=== PATIENT | female | born 1965 | race Caucasian/White ===

== ENCOUNTER → 2017-01-10 | Day surgery (SDC) | payer OTHER ==
[~2017-01-10] MED LIST: ACETAMINOPHEN; ACETAMINOPHEN PO; AMITRIPTYLINE H75 MG PO; BACTRIM DS TABL1 TAB; CARAFATE1 G PO; CIPRO PO; CYCLOBENZAPRINE5 MG PO; LEVAQUIN PO; NICOTINE TRANSDE7 MG TD; PROTONIX PO; PYRIDIUM100 MG PO; SINUS PO; VICODIN 5/500 T1 TAB; [UNRECOGNIZED DRUG - OTHER] PO
--- NOTE | ~2017-01-10 | OR ---
Unit #: [id number] #: [id number] Patient: PAMELA TRAORE [id number] [address] [place], [place] [address] [id number] O MR#: [id number] NAME: PAMELA TRAORE ROOM: Date of Procedure: 01/10/2017 Admission Date: 01/10/2017 Surgeon: Gray Douglas M.D. : 1965 Attending Physician: Gray Douglas M.D. Primary Care Physician: Sulaiman Montenegro M.D. OPERATIVE REPORT ADDITIONAL ATTENDING PHYSICIAN Ana Islas APRN PREOPERATIVE DIAGNOSIS Colorectal cancer screening in an average-risk patient. PROCEDURE PERFORMED Colonoscopy up to cecum with good prep and visualization. POSTOPERATIVE DIAGNOSES Completely normal examination up to cecum. The patient did not have any polyps, diverticula, or hemorrhoids. The quality of the prep was good. RECOMMENDATIONS Repeat colonoscopy in 10 years. SEDATION USED MAC. DESCRIPTION OF PROCEDURE Following detailed explanation of potential risks and complications of a colonoscopy, namely perforation, bleeding, and complications related to sedation, the patient was brought to GI lab and laid in the left lateral decubitus position. A digital rectal examination was performed, which was normal. Lubricated tip of the Olympus video colonoscope was inserted through the anus and advanced under direct vision. The scope was advanced and passed up to sigmoid into descending colon. No diverticula were noticed in this area. The scope tip was then navigated all the way up to cecum with visualization of the ileocecal valve and the appendiceal orifice. Preparation was excellent with good visualization and photodocumentation was obtained. Successive segments of the colonic mucosa were examined upon withdrawal and appeared unremarkable. There being no polyps, mass lesions, AVMs, or diverticula. The patient did not have any hemorrhoids at anal verge. The scope was then withdrawn. The patient returned to recovery area. She tolerated the procedure without any postprocedure complications. Dictated by... Gray Douglas M.D. Unit #: [id number] #: [id number] Patient: PAMELA TRAORE ARANZA/quita TD: 01/11/2017 02:36 JOB #: [id number] OPERATIVE REPORT X Gray Douglas MD PROCEDURE OPERATIVE NOTE
== END | disposition home or self-care (01) ==
LOC: COPS 10:25
DX: Z12.11 Encounter for screening for malignant neoplasm of colon (principal); J44.9 Chronic obstructive pulmonary disease, unspecified; F17.210 Nicotine dependence, cigarettes, uncomplicated; Z87.01 Personal history of pneumonia (recurrent); Z87.440 Personal history of urinary (tract) infections; Z79.899 Other long term (current) drug therapy; Z90.710 Acquired absence of both cervix and uterus
CPT/HCPCS: J2250

== ENCOUNTER → 2017-05-02 | Outpatient (CLI) | payer OTHER ==
--- NOTE | ~2017-05-02 | US37 ---
[facility] A Service of [facility] & [facility] / [facility] RADIOLOGY TEXT RESULTS PATIENT: PAMELA TRAORE LOCATION: [facility] : 61 UNIT #: [id number] AGE: [address]: Tanvir Godfrey MD SEX: F ORDER DR: [id number] [facility] [address]. [place], [place] [address] [id number] O MR#: [id number] Acc #: [id number] NAME: PAMELA TRAORE : 1965 SEX: F STUDY DATE/TIME: 05/02/2017 8:14 UNIT: [facility] ROOM: STUDY DESCRIPTION: US Carotid W/Doppler Bilateral Attending Physician: Tanvir Godfrey M.D. Referring Physician: Tanvir Godfrey M.D. Ordering Physician: Tanvir Godfrey M.D. Primary Care Physician: Carmen German Aprn MEDICAL IMAGING REPORT This report is preliminary unless electronic signature is present EXAM Carotid duplex scan. DATE OF EXAMINATION 05/02/2017 HISTORY Hypertension. Headaches. Numbness left lower extremity. FINDINGS The right common carotid artery has a small amount of heterogeneous plaque which extends up into the proximal internal and external carotid arteries. Peak systolic velocity in the mid right internal carotid artery is 88 cm/sec with an end-diastolic velocity of 34 cm/sec. The ICA/CCA ratio on the right is 1.0. Peak systolic velocity in the right external carotid artery is 66 cm/sec. The right vertebral artery is patent with antegrade flow. The left common carotid artery has a small amount of heterogeneous plaque which extends up into the proximal internal and external carotid arteries. Peak systolic velocity in the mid left internal carotid artery is 83 cm/sec with an end-diastolic velocity of 41 cm/sec. The ICA/CCA ratio on the left is 0.9. Peak systolic velocity in the left external carotid artery is 86 cm/sec. The left vertebral artery is patent with antegrade flow. IMPRESSION Small amount of plaque, but no significant stenosis (less than 50%) in the internal and external carotid arteries bilaterally. Patent vertebral arteries bilaterally with antegrade flow. [facility] A Service of [facility] & [facility] / [facility] RADIOLOGY TEXT RESULTS PATIENT: [facility]AMEL[facility] TRAORE [id number] [birth year] UNIT #: [id number] AGE: [address]: Tanvir Godfrey MD SEX: F ORDER DR: Dictated by... Figueroa Colon M.D. THIS IS AN ELECTRONICALLY VERIFIED REPORT Figueroa Colon M.D. at 05/03/2017 8:31 AM LIZY/emmanuel TD: 05/02/2017 14:46 JOB #: [id number] MEDICAL IMAGING REPORT Page 1 of 1 COPY
== END | disposition home or self-care (01) ==
LOC: CNUC 07:36
DX: R07.89 Other chest pain (principal); I65.23 Occlusion and stenosis of bilateral carotid arteries; I10 Essential (primary) hypertension
CPT/HCPCS: 93880